=== PATIENT | female | born 1950 ===

== ENCOUNTER 2023-10-27 14:37 | Outpatient (CLI) | payer MEDICARE, OTHER ==
[2023-10-27 15:56] LABS: THYROID STIMULATING HORMONE 1.31 uIU/mL (0.34-5.60)
== END 2023-10-27 14:38 | disposition home or self-care (01) ==
LOC: LAB.R 14:37
PROVIDERS: ATTEND Registered Nurse
DX: E03.9 Hypothyroidism, unspecified (principal)
CPT/HCPCS: 84439; 84443